=== PATIENT | male | born 1965 | race Caucasian/White ===

== ENCOUNTER 2023-04-27 14:38 | Emergency (ER) | payer OTHER ==
[~2023-04-27] VITALS: Ht 185.4 cm; Wt 85.3 kg
[2023-04-27 14:38] VITALS: BP_SYST 174; PULSE 81; RESP 18; TEMP 97.2; O2SAT 97
[2023-04-27] MEDS ORDERED: MECLIZINE HCL 25 MG TABLET (ANITVERT) PO ONE (15:00)
[2023-04-27] MEDS ORDERED: NS 1000 ML IV.SOLN IV ONE (15:00)
[2023-04-27 15:25] LABS: BASOPHILS % (AUTO) 0.4 % (0.0-2.0); EOSINOPHILS % (AUTO) 0.3 % (0.0-4.0); HEMATOCRIT 46.8 % (36-54); HEMOGLOBIN 15.6 g/dL (14.0-18.0); LYMPHOCYTES # (AUTO) 1.2 K/uL (1.0-5.5); LYMPHOCYTES % (AUTO) 13.9 % (20.5-51.5); MEAN CORPUSCULAR HEMOGLOBIN 32 pg (27-31); MEAN CORPUSCULAR HGB CONC 33 % (32-36); MEAN CORPUSCULAR VOLUME 95 fL (79.0-98.0); MONOCYTES # (AUTO) 0.4 K/uL (0.0-1.0); MONOCYTES % (AUTO) 4.4 % (1.7-9.3); NEUTROPHILS # (AUTO) 7.2 K/uL (1.8-7.7); PLATELET COUNT (AUTO) 235 K/uL (130-430); RED BLOOD CELL COUNT(AUTO) 4.91 MIL/uL (4.2-6.2); RED CELL DISTRIBUTION WIDTH 13.3 % (9.0-15.0); WHITE BLOOD COUNT (AUTO) 8.8 K/uL (4.8-10.8)
[2023-04-27] MEDS ORDERED: LABETALOL 100 MG/ 20ML VIAL IVP ONE (15:30)
[2023-04-27 15:31] LABS: CALCIUM 9.6 mg/dL (8.4-11.0); CREATININE 0.81 mg/dL (0.55-1.30); POTASSIUM 4.3 mmol/L (3.5-5.1)
[2023-04-27] MEDS ORDERED: MECL-225 PO (17:02)
[2023-04-27 18:06] VITALS: BP_SYST 205; PULSE 79; RESP 18; TEMP 98.6; O2SAT 97
== END 2023-04-27 18:06 | disposition home or self-care (01) ==
LOC: SED 14:38
DX: H81.10 Benign paroxysmal vertigo, unspecified ear (principal); R51.9 Headache, unspecified; R11.2 Nausea with vomiting, unspecified; I10 Essential (primary) hypertension; Z79.899 Other long term (current) drug therapy
CPT/HCPCS: 99284; 96360; 70450; 80048; 85025; 36415; 76376; J8597; J7030